=== PATIENT | male | born 1945 | race Caucasian/White ===

== ENCOUNTER 2021-07-22 13:07 | Inpatient (IN) | payer OTHER ==
[~2021-07-22] VITALS: Ht 180.3 cm; Wt 92.5 kg
[2021-07-22 13:10] VITALS: BP 151/86
[2021-07-22 13:37] LABS: ABSOLUTE NEUTROPHILS 4.6 thou/uL (1.4-8.2); BASOPHILS 0.6 % (0.0-2.0); EOSINOPHILS 0.1 % (0.0-3.0); HEMATOCRIT 42.2 % (42.0-52.0); HEMOGLOBIN 14.6 gm/dL (14.0-18.0); LYMPHOCYTES 15.7 % (24.0-44.0); MCH 30.9 pg (26.0-34.0); MCHC 34.5 g/dL (28.0-37.0); MCV 89.6 fL (80.0-100.0); MONOCYTES 7.4 % (1.0-8.0); PLATELET COUNT 269 thou/uL (150-400); POLYS 76.2 % (36.0-66.0); RBC 4.71 mil/uL (4.50-6.00)
[2021-07-22 13:49] LABS: CALCIUM 8.8 mg/dL (8.5-10.1); CREATININE 1.1 mg/dL (0.7-1.3); POTASSIUM 3.1 mmol/L (3.5-5.1)
[2021-07-22 13:59] LABS: ALBUMIN 2.7 g/dL (3.4-5.0); TOTAL BILIRUBIN 0.9 mg/dL (0.2-1.0); TOTAL PROTEIN 6.8 g/dL (6.4-8.2)
[2021-07-22 14:33] LABS: URINE BILIRUBIN NEGATIVE (Negative); URINE BLOOD 1+ (Negative); URINE CLARITY CLEAR; URINE COLOR YELLOW; URINE GLUCOSE-RANDOM* NEGATIVE (Negative); URINE KETONES NEGATIVE (Negative); URINE LEUKOCYTES-REFLEX NEGATIVE (Negative); URINE NITRITE-REFLEX NEGATIVE (Negative); URINE PROTEIN (DIPSTICK) 2+ (Negative); URINE SPECIFIC GRAVITY 1.025 (1.005-1.035); URINE UROBILINOGEN 0.2 E.U./dl (0.2-1.0)
--- NOTE | 2021-07-22 14:38 | EKG ---
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
[2021-07-22 14:43] LABS: SQUAMOUS None Seen /LPF (0-3)
[2021-07-22 14:44] LABS: BACTERIA-REFLEX 1-9 Few /HPF (None Seen); CASTS None Seen /LPF (None Seen); CRYSTALS None Seen /LPF (None Seen); URINE RBC 3-10 Few /HPF (NONE SEEN); URINE WBC-REFLEX 0-5 Rare /HPF (0-5)
[2021-07-22 17:45] VITALS: BP 147/75
[2021-07-22 19:15] VITALS: BP 139/88
--- NOTE | 2021-07-23 03:02 | NUR ---
PT GETS UP WITH SBA TO THE BATHROOM, VOIDING OKAY. PASSING FLATUS, SMALL AMTS OF BM NOTED. PT DENIES PAIN. REPORTS FEELING BETTER.BEEN HAVING NIGHT SWEATS REQUIRING BED CHANGE. SR ON TELEMETRY.ON ROOM AIR-NO DISTRESS.WILL CONTINUE WITH POC TILL EOS.
[2021-07-23 03:07] LABS: MCH 30.5 pg (26.0-34.0); MCHC 33.4 g/dL (28.0-37.0); MCV 91.4 fL (80.0-100.0); RBC 4.59 mil/uL (4.50-6.00); WBC 4.3 thou/uL (4.0-11.0)
[2021-07-23 03:37] VITALS: BP 143/87
[2021-07-23 04:18] LABS: ALBUMIN 2.4 g/dL (3.4-5.0); MAGNESIUM 1.9 mg/dL (1.8-2.4); TOTAL BILIRUBIN 0.6 mg/dL (0.2-1.0); TOTAL PROTEIN 6.4 g/dL (6.4-8.2)
[2021-07-23 04:49] LABS: POTASSIUM 4.2 mmol/L (3.5-5.1)
[2021-07-23 07:35] VITALS: BP 158/85
[2021-07-23] MEDS ORDERED: VAZALORE81 MG PO (10:28)
[2021-07-23] MEDS ORDERED: ZESTRIL20 MG PO (10:30)
--- NOTE | 2021-07-23 11:29 | NUR ---
PT ADMITTED RELATED TO COVID PNEUMONIA. CM REVIEWED CHART AND SPOKE WITH CARE TEAM. CM CALLED AND SPOKE WITH PT VIA HIS CELL PHONE . PT APPEARED TO BE A&O X4. CM ROLE INTRODUCED. PT INDICATED HE RESIDES IN A BARN WITH ONE FLOOR WITH HIS SON MAIRA IVY. PT INDICATED NO STEPS TO ENTER AND NONE INSIDE. 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 PT INDICATED HE HADN'T BEEN EATING AND DRINKING AND THAT THAT GOT HIM INTO THIS SITUATION. PT IS ON RA AND HAD BEEN GETTING NEBULIZER TREATMENTS. CM INDICATED TO PT THAT HOSPITALIST STATED THAT HE MAY BE MEDICALLY STABL TO DC HOME THIS DAY. HE ASKED THAT CM CALL HIS SON WHO WILL TRNASPORT HIM HOME ONCE READY. NO NUMBER FOR MAIRA COPELAND IN [place] PT PROVIDED IT BUT TWICE GAVE NON WORKING NUMBER. HOSPITALIST INDICATED THAT ER SAID PT'S DTR HAD BEEN HERE UPON ADMISSION SVEN . CM CALLED TO CONFIRM WITH PT AND HE INDICATED HE DIDN'T WANT HIS DTR CONTACTED SHE WANTS HIM TO GO STAY BY HER AND HIS WHO ALSO HAVE COVID. HE INDICATED THAT HE WANTS TO RETURN WHERE HE STAYS AND DOESN'T WANT CM TO CALL HIS DTR. CM NOTIFIED HOSPITALIST. CM FOLLOWING REGARDIND DC PLANNING.
[2021-07-23 11:53] VITALS: BP 151/92
--- NOTE | 2021-07-23 15:00 | NUR ---
PLEASE SEE OT VARIANCE
--- NOTE | 2021-07-23 16:36 | NUR ---
PROGRESSING TOWARDS GOALS, FALL PRECAUTIONS MAINTAINED.
--- NOTE | 2021-07-23 16:50 | NUR ---
Patient arrived to floor from 4W at 1640 escorted by BRYSON RN. All of paients belongings are brought with patient.
[2021-07-23 18:58] VITALS: BP 176/105
[2021-07-24] VITALS (8 sets, daily range): BP systolic 165–190; BP diastolic 90–116
[2021-07-24 03:42] LABS: HEMOGLOBIN 13.2 gm/dL (14.0-18.0); MCH 31.3 pg (26.0-34.0); MCHC 34.6 g/dL (28.0-37.0); MCV 90.5 fL (80.0-100.0); RBC 4.2 mil/uL (4.50-6.00); RDW 13.2 % (10.5-14.5); WBC 10.8 thou/uL (4.0-11.0)
[2021-07-24 04:50] LABS: ALBUMIN 2.3 g/dL (3.4-5.0); CALCIUM 7.9 mg/dL (8.5-10.1); MAGNESIUM 1.9 mg/dL (1.8-2.4); POTASSIUM 4.1 mmol/L (3.5-5.1); TOTAL BILIRUBIN 0.3 mg/dL (0.2-1.0)
--- NOTE | 2021-07-24 06:23 | NUR ---
PT IS A/0X4 AND UP TO BATHROOM AD ALIDA. BP HAVE BEEN ELEVATED OVERNIGHT. MED REC SHOWS PT IS ON [id number] AND WILL FOLLOW UP WITH AM NURSE. NO OTHER COMPLAINTS OVERNIGHT.
--- NOTE | 2021-07-24 11:36 | NUR ---
DISCHARGE NOTE: PHYLLIS reviewed chart and spoke with nursing and attending physician. Pt was transferred 3W from 4W. Pt remains in Enhanced Isolation due to COVID. Pt is afebrile and on room air. Rest/exercise oximetry ordered today. Pt is medically stable for discharge home today. Awaiting results of rest/exercise oximetry. SW spoke with pt via phone to discuss discharge plan. Pt is aware and in agreement [facility] plan. Pt states his son, Juan, will be able to provide transportation home. Juan will need be called when he is ready for discharge. No discharge needs identified at this time. SW is available to arrange home O2 if needed, and assist as needed with discharge planning.
[2021-07-24] MEDS ORDERED: CEFDINIR300 MG PO (16:24)
[2021-07-24] MEDS ORDERED: ZESTRIL20 MG PO (16:24)
[2021-07-24] MEDS ORDERED: NORVASC10 MG PO (16:25)
[2021-07-24] MEDS ORDERED: PREDNISONE 10 M10 MG PO (16:25)
[2021-07-24] MEDS ORDERED: [UNRECOGNIZED DRUG - REMARK] (18:08)
== END 2021-07-24 18:39 | disposition home or self-care (01) | DRG 177 ==
LOC: ER 13:07 → EROBS 15:50 → 4W 15:50 → 3W 15:50 → 4W 17:50 → 3W 07-23 16:49
PROVIDERS: Nurse Practitioner; ADMIT Internal Medicine; ATTEND Internal Medicine
DX: U07.1 COVID-19 (principal); J12.82 Pneumonia due to coronavirus disease 2019; E87.1 Hypo-osmolality and hyponatremia; E44.0 Moderate protein-calorie malnutrition; I10 Essential (primary) hypertension; Z68.28 Body mass index [BMI] 28.0-28.9, adult; F41.9 Anxiety disorder, unspecified; E87.6 Hypokalemia; Z95.5 Presence of coronary angioplasty implant and graft; I25.10 Atherosclerotic heart disease of native coronary artery without angina pectoris
CPT/HCPCS: 10045; 10879

== ENCOUNTER → 2021-08-08 | Outpatient (CLI) | payer MEDICARE ==
[~2021-08-08] MED LIST: CEFDINIR300 MG PO; NORVASC10 MG PO; PREDNISONE 10 M10 MG PO; VAZALORE81 MG PO; ZESTRIL20 MG PO; [UNRECOGNIZED DRUG - REMARK]
== END ==
LOC: RAD 08:49
PROVIDERS: ATTEND Family Medicine
DX: J18.9 Pneumonia, unspecified organism (principal); J98.11 Atelectasis

== ENCOUNTER 2021-08-16 11:42 | Emergency (ER) | payer OTHER ==
[~2021-08-16] VITALS: Ht 180.3 cm; Wt 89.8 kg
[2021-08-16 12:12] LABS: ABSOLUTE NEUTROPHILS 3.6 thou/uL (1.4-8.2); BASOPHILS 0.9 % (0.0-2.0); EOSINOPHILS 12.5 % (0.0-3.0); HEMATOCRIT 36.8 % (42.0-52.0); HEMOGLOBIN 12.9 gm/dL (14.0-18.0); LYMPHOCYTES 19.8 % (24.0-44.0); MCH 31.7 pg (26.0-34.0); MCHC 35.1 g/dL (28.0-37.0); MCV 90.2 fL (80.0-100.0); MONOCYTES 10.8 % (1.0-8.0); PLATELET COUNT 341 thou/uL (150-400); RBC 4.07 mil/uL (4.50-6.00); RDW 13.3 % (10.5-14.5); WBC 6.5 thou/uL (4.0-11.0)
[2021-08-16 12:20] LABS: CALCIUM 9.9 mg/dL (8.5-10.1); CREATININE 1.1 mg/dL (0.7-1.3); POTASSIUM 3.5 mmol/L (3.5-5.1)
[2021-08-16 12:30] LABS: ALBUMIN 2.9 g/dL (3.4-5.0); TOTAL BILIRUBIN 0.5 mg/dL (0.2-1.0); TOTAL PROTEIN 7.9 g/dL (6.4-8.2)
[2021-08-16 14:35] VITALS: BP 161/86
--- NOTE | 2021-08-18 07:36 | EKG ---
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 : 1945 Requested By: Compa Webb Order Number: [id number] MD: Janes Chung Measurements Intervals [place] Rate: 91 P: 44 NE: 171 QRS: -58 QRSD: 112 T: 73 QT: 355 QTc: 437 Interpretive Statements Sinus rhythm Probable left atrial enlargement Left anterior fascicular block Abnormal R-wave progression, late transition Minimal ST depression, lateral leads Baseline wander in lead(s) I,II,aVR Compared to ECG 07/22/2021 13:27:29 Left anterior fascicular block now present ST (T wave) deviation now present Electronically Signed On 08-18-2021 7:36:18 HOSPITAL CODER by Janes Chung [email or web address] <ELECTRONICALLY SIGNED> By: Janes Chung MD, FACC 08/18/21 0736 1150 1150 Janes Chung MD, FAC /EPI
== END 2021-08-16 14:49 | disposition home or self-care (01) ==
LOC: ER 11:42
PROVIDERS: Emergency Medicine
DX: R07.89 Other chest pain (principal); R06.02 Shortness of breath; I10 Essential (primary) hypertension; I25.10 Atherosclerotic heart disease of native coronary artery without angina pectoris; Z86.16 Personal history of COVID-19; Z79.82 Long term (current) use of aspirin; Z79.899 Other long term (current) drug therapy